=== PATIENT | female | born 1990 | race Caucasian/White ===

== ENCOUNTER 2020-09-11 14:01 | Outpatient (CLI) | payer BC ==
[2020-09-11] MEDS: LACTATED RINGERS 1,000 ML IV ONE ×2 (14:52→15:54)
[2020-09-11 15:04] LABS: Basophils # (A) 0.1 k/uL (0-0.2); Basophils % (A) 0 %; Eosinophils # (A) 0.2 k/uL (0-0.7); Eosinophils % (A) 2 %; HCT 34.7 % (34.0-46.0); HGB 11.7 gm/dL (11.4-16.0); Lymphocytes # (A) 1.2 k/uL (1.0-4.8); Lymphocytes % (A) 10 %; MCH 30.4 pg (25.0-35.0); MCHC 33.7 g/dL (31.0-37.0); MCV 90.4 fL (80.0-100.0); Mean Platelet Volume 8.5; Monocytes # (A) 0.4 k/uL (0-1.0); Monocytes % (A) 4 %; Neutrophils # (A) 10.5 k/uL (1.3-7.7); Neutrophils % (A) 84 %; Platelet Count 176 k/uL (150-450); RBC 3.84 m/uL (3.80-5.40); RDW 12.8 % (11.5-15.5); WBC 12.5 k/uL (3.8-10.6)
[2020-09-11 15:13] LABS: ALT 9 U/L (4-34); AST 28 U/L (14-36); African American GFR (CKD) >90 (>60 ml/min/1.73 sqM); Albumin 3.8 g/dL (3.5-5.0); Alkaline Phosphatase 75 U/L (38-126); Amylase 121 U/L (30-110); Anion Gap 5 mmol/L; Blood Urea Nitrogen 7 mg/dL (7-17); Calcium 9.4 mg/dL (8.4-10.2); Carbon Dioxide 22 mmol/L (22-30); Chloride 106 mmol/L (98-107); Glucose 80 mg/dL (74-99); Lipase 164 U/L (23-300); Non-African American GFR(CKD) >90 (>60 ml/min/1.73 sqM); Potassium 4.1 mmol/L (3.5-5.1); Sodium 133 mmol/L (137-145); Total Bilirubin 0.6 mg/dL (0.2-1.3); Total Protein 6.6 g/dL (6.3-8.2)
[2020-09-11 15:34] LABS: Appearance,Urine Clear (Clear); Bilirubin,Urine Negative (Negative); Blood,Urine Negative (Negative); Color,Urine Light Yellow; Glucose,Urine (UA) Negative (Negative); Ketones,Urine 2+ (Negative); Leukocyte Esterase,Urine Negative (Negative); Nitrite,Urine Negative (Negative); PH, Urine 6.5 (5.0-8.0); Protein,Urine Negative (Negative); Specific Gravity,Urine 1.009 (1.001-1.035); Urobilinogen,Urine <2.0 mg/dL (<2.0)
--- NOTE | 2020-09-11 15:40 | US ---
EXAMINATION TYPE: US gallbladder DATE OF EXAM: 09/11/2020 COMPARISON: NONE CLINICAL HISTORY: r/o gall stones kidney stones. Pain EXAM MEASUREMENTS: Liver Length: 17.2 cm Gallbladder Wall: .3 cm CBD: .6 cm Right Kidney: 11.6 x 4.1 x 4.5 cm Pancreas: Obscured by bowel gas Liver: wnl Gallbladder: wnl Evidence for sonographic Montalvo's sign: No CBD: wnl Right Kidney: No hydronephrosis or masses seen IMPRESSION: Negative exam. No gallstones or dilated ducts. No focal liver defect.
--- NOTE | 2020-09-11 15:42 | US ---
EXAMINATION TYPE: US kidneys/renal and bladder DATE OF EXAM: 09/11/2020 COMPARISON: NONE CLINICAL HISTORY: r/o kidney stone. Pain Patient 29 wks EXAM MEASUREMENTS: Right Kidney: 10.8 x 3.8 x 4.0 cm Left Kidney: 11.7 x 5.7 x 4.4 cm Right Kidney: No stones seen. Left Kidney: Mild to moderate hydronephrosis. Bladder: wnl Bilateral Jets seen: Yes IMPRESSION: Kidneys have normal size. There is left side hydronephrosis but ureteral jets are seen in the urinary bladder. I do not suspect obstruction.
[2020-09-11 15:44] LABS: Amphetamine Screen,Urine Not Detected (NotDetected); Barbiturate Screen,Urine Not Detected (NotDetected); Benzodiazepines Screen,Urine Not Detected (NotDetected); Cocaine Screen,Urine Not Detected (NotDetected); Methadone Screen, Urine Not Detected (NotDetected); Opiate Screen,Urine Not Detected (NotDetected); Oxycodone Screen, Urine Not Detected (NotDetected); Phencyclidine Screen,Urine Not Detected (NotDetected); Tricyclic Antidepressant,Urine Not Detected (NotDetected); Urn Cannabinoid Scrn Not Detected (NotDetected)
[2020-09-11 16:41] VITALS: BP 116/81; PULSE 87; RESP 18; TEMP 96.6
--- NOTE | 2020-09-13 06:20 | P.MSEPDOC ---
Presenting Problems - Arrival Data Date of Arrival on Unit: 09/11/20 Time of Arrival on Unit: 14:01 Mode of Transport: Portable - Complaint OB-Reason for Admission/Chief Complaint: Pain Comment: back and right side abdominal pain Medical History - Information : 2 Para: 1 Term: 1 : 0 Abortions: Spontaneous or Elective: 0 Number of Living Children: 1 - Gestational Age Gestational Age by GIANNA (wks/days): 29 Weeks and 5 Days - History Complications: Prior Comment: following with OB cytometry technologist in [place] Review of Systems - Review of Systems Constitutional: No problems Breast: No problems ENT: No problems Cardiovascular: No problems Respiratory: No problems Gastrointestinal: No problems Genitourinary: No problems Musculoskeletal: No problems Neurological: No problems Skin: No problems Vital Signs - Temperature Temperature: 96.6 F Temperature Source: Temporal Artery Scan - Pulse Right Sitting Brachial Pulse Rate: 87 Pulse Assessment Method: Automatic Cuff - Respirations Respiratory Rate: 18 Oxygen Delivery Method: Room Air O2 Sat by Pulse Oximetry: 100 - Blood Pressure Right Arm Sitting Blood Pressure: 116/81 Blood Pressure Mean: 92 Blood Pressure Source: Automatic Cuff Medical Screen Scoring (Pre) - Cervical Exam Dilation: 0 cm = 0 - Uterine Contractions Frequency: < 36 weeks = 6 Duration: > 40 seconds = 2 Intensity: N/A - Maternal Vital Signs Maternal Temperature: N/A Maternal Blood Pressure: N/A Signs of Preeclampsia: N/A Maternal Respirations: N/A - Maternal Trauma Maternal Trauma: N/A - Assessment - Baby A Baseline FHR: 120 Heart Rate - NICHD Category: Category I (Normal) = 0 NST: Reactive Position: N/A Station: N/A - Total Score - Baby A Total Score - Baby A: 8 - Total Score - Baby B Total Score - Baby B: 8 - Total Score - Baby C Total Score - Baby C: 8 - Level of Risk - Baby A Level of Risk - Baby A: Medium (6-9) - Level of Risk - Baby B Level of Risk - Baby B: Medium (6-9) - Level of Risk - Baby C Level of Risk - Baby C: Medium (6-9) Physician Notification (Pre) - Physician Notified Physician Notified Date: 09/11/20 Physician Notified Time: 16:30 New Order Received: Yes - Notification Comment Comment: DC home. Pt to make an appt with her own OB patti. labs reviewed. US neg. FFN neg. Cx closed. pain resolved prior to dc home. Disposition - Disposition OB Disposition: Discharge to home Discharge Date: 09/11/20 Discharge Time: 16:35 I agree with the RN Medical Screening Exam: Yes Case reviewed; plan agreed upon as documented in EMR&OBIX.: Yes Diagnosis: RELATED CONDITIONS, UNSPECIFIED, THIRD TRIMESTER
== END 2020-09-11 16:35 | disposition home or self-care (01) ==
LOC: FBPOP 14:01
PROVIDERS: ATTEND Obstetrics & Gynecology
DX: O26.93 Pregnancy related conditions, unspecified, third trimester (principal); Z3A.29 29 weeks gestation of pregnancy
CPT/HCPCS: 59025; 76705; 76770; 80053; 80306; 81003; 82150; 82247; 82731; 83690; 85025; 96361; 99214

== ENCOUNTER → 2022-07-31 | Outpatient (CLI) | payer BC ==
--- NOTE | 2022-07-31 07:35 | MM ---
Reason for Exam: Clinical finding. Baseline mammogram. Patient History: Menarche at age 12. First Full-Term at age 25. Maternal aunt had breast cancer. Last menstrual period: 07/26/2022 Prior Study Comparison: Patient's first Mammogram. No prior studies available for comparison. Tissue Density: The breast tissue is heterogeneously dense. This may lower the sensitivity of mammography. Findings: Analyzed By CAD. There is a oval 2.5 cm circumscribed mass at the level of palpable abnormality middle to posterior depth upper aspect. No suspicious group of microcalcification is seen bilaterally. Overall Assessment: Incomplete: need additional imaging evaluation, BI-RAD 0 Management: Diagnostic Breast Ultrasound of the left breast. Targeted ultrasound left breast at the area of mammogram and clinical concern. Electronically signed and approved by: Benito Diamond M.D.
--- NOTE | 2022-07-31 08:15 | USB ---
Reason for Exam: Clinical finding. Patient History: Menarche at age 12. First Full-Term at age 25. Maternal aunt had breast cancer. Technique: Method: Targeted. Findings: The upper section of the breast of the left breast, the area of palpable concern of the left breast, the axilla of the left breast and the retroareolar of the left breast were scanned. Targeted ultrasound left breast shows a 2.4 x 1.2 x 1.9 cm heterogeneous hypoechoic suspected solid mass without significant vascularity or posterior acoustic features is believed to be corresponding to palpable abnormality. Overall Assessment: Suspicious, BI-RAD 4 Management: Ultrasound Core Biopsy of the left breast. Probable fibroadenoma but sampling advised due to size and palpable to exclude other pathology. Results were given to the patient verbally at the time of exam. Electronically signed and approved by: Benito Diamond M.D.
== END | disposition home or self-care (01) ==
LOC: RADMAMWWP 06:58
PROVIDERS: ATTEND Family Medicine
DX: C50.212 Malignant neoplasm of upper-inner quadrant of left female breast (principal); Z80.3 Family history of malignant neoplasm of breast
CPT/HCPCS: 77062; 77066

== ENCOUNTER → 2022-08-16 | Day surgery (SDC) | payer BC ==
--- NOTE | 2022-08-24 14:39 | MM ---
Reason for Exam: Post Procedure Mammogram. Last screening mammogram was performed less than 1 month ago. Patient History: Menarche at age 12. First Full-Term at age 25. Maternal aunt had breast cancer. Prior Study Comparison: 07/31/2022 Bilateral MG 3D diag mammo w/cad [facility], [facility]. Tissue Density: Left: The breast tissue is heterogeneously dense. This may lower the sensitivity of mammography. Pathology Description: Location: 12 o'clock. Marker Left Behind. Needle Type: Celero Cores: 2 Gauge: 12 The procedure of ultrasound guided core biopsy was explained to the patient. Benefits, alternatives, and risks were discussed. An informed consent was then obtained. The patient was placed in supine positioning for imaging and for the procedure. Preprocedure ultrasound redemonstrates a lobulated heterogeneous hypoechoic solid 2.3 cm mass at 12:00 position left breast. The overlying skin was prepped and draped in usual sterile fashion. Lidocaine is used as anesthetic into the skin and subcutaneous tissue up to area of concern in the left breast. Under ultrasound guidance, a vacuum assisted biopsy gun device was used to obtain 2 core samples. Following this, a biopsy clip was left in lesion. The patient tolerated the procedure well without any immediate complication. The patient was kept in the radiology department for short stay after the procedure and then discharged home in stable condition. Postprocedure mammogram: The patient was transferred to mammography for physician ordered post procedure mammogram for clip placement verification. Successful deployment of clip within mass on ultrasound and postprocedure mammogram. Impression: Successful, uncomplicated ultrasound guided core biopsy of area of concern in the left breast, full pathology results to follow. Low index of suspicion. Fibroadenoma is suspected. Pathology Results: Result: Benign, Fibroadenoma. LEFT BREAST, ULTRASOUND GUIDED NEEDLE CORE BIOPSY: Fibroadenoma. Overall Assessment: Benign Assessment: MG diagnostic mammo LT wo CAD. - Left: Benign, BI-RAD 2. Management: Diagnostic Breast Ultrasound of the left breast in 6 months. Electronically signed and approved by: Benito Diamond M.D.
== END ==
LOC: RADUSWWP 12:46
PROVIDERS: ATTEND Surgery
DX: D24.2 Benign neoplasm of left breast (principal)
CPT/HCPCS: 88305; 77065; 19083; A4648

== ENCOUNTER → 2023-08-17 | Outpatient (CLI) | payer BC ==
--- NOTE | 2023-08-17 14:18 | USB ---
Reason for Exam: Follow-up at short interval from prior study. Patient History: Menarche at age 12. First Full-Term at age 25. 08/16/2022, Benign US biopsy breast VAD LT on the left side. Maternal aunt had breast cancer. Last menstrual period: 07/22/2023 Risk Values: Lyn 5 year model risk: 0.5%. NCI Lifetime model risk: 12.7%. Technique: Method: Targeted. Doppler: Color. Patient Position: Supine. Prior Study Comparison: 07/31/2022 Bilateral MG 3D diag mammo w/cad [facility], [facility]. 07/31/2022 Left US breast limited LT, [facility]. 08/16/2022 Left MG diagnostic mammo LT wo CAD., [facility]. Findings: The area of palpable concern of the left breast, the axilla of the left breast and the retroareolar of the left breast were scanned. There is a 2.2 x 1.2 x 2.0 cm hypoechoic well-circumscribed mass. This is stable from comparison. Overall Assessment: Benign, BI-RAD 2 Management: Screening Mammogram of both breasts in 1 year. A clinical breast exam by your physician is recommended on an annual basis and results should be correlated with mammographic findings. This exam should not preclude additional follow-up of suspicious palpable abnormalities. Results were given to the patient verbally at the time of exam. Electronically signed and approved by: Rickey Gambino D.O. Radiologis
== END | disposition home or self-care (01) ==
LOC: RADUSWWP 07:01
PROVIDERS: ATTEND Surgery
DX: R92.8 Other abnormal and inconclusive findings on diagnostic imaging of breast (principal); Z80.3 Family history of malignant neoplasm of breast

== ENCOUNTER → 2023-08-24 | Outpatient (CLI) | payer BC ==
--- NOTE | 2023-08-25 14:28 | CA ---
Transthoracic Echo Report Name: Charlene Canales Age: 33 Gender: F : 1990 Exam Date: 08/24/2023 16:05 Exam Location: [facility] Ht (in): 61 Wt (lb): 152 Ordering Physician: Erin Duarte DO Attending/Referring Phys: Radha Orr [facility] Ambulatory Analyst Samantha Centeno RDCS Procedure CPT: Indications: R00.2 PALIPTATIONS Cardiac Hx: Technical Quality: Fair Contrast 1: Total Dose (mL): Contrast 2: Total Dose (mL): MEASUREMENTS (Male / Female) Normal Values 2D ECHO LV Diastolic Diameter PLAX 3.9 cm 4.2 - 5.9 / 3.9 - 5.3 cm LV Systolic Diameter PLAX 2.6 cm IVS Diastolic Thickness 0.8 cm 0.6 - 1.0 / 0.6 - 0.9 cm LVPW Diastolic Thickness 0.9 cm 0.6 - 1.0 / 0.6 - 0.9 cm LV Relative Wall Thickness 0.4 RV Internal Dim ED PLAX 2.9 cm LA Volume 31.8 cm??? 18 - 58 / 22 - 52 cm??? LA Volume Index 18.2 cm???/m??? 16 - 28 cm???/m??? M-MODE Aortic Root Diameter MM 2.7 cm LA Systolic Diameter MM 2.5 cm LA Ao Ratio MM 0.9 AV Cusp Separation MM 1.8 cm DOPPLER AV Peak Velocity 134.2 cm/s AV Peak Gradient 7.2 mmHg AV Mean Velocity 97.3 cm/s AV Mean Gradient 4.0 mmHg AV Velocity Time Integral 26.3 cm LVOT Peak Velocity 95.1 cm/s LVOT Peak Gradient 3.6 mmHg LVOT Velocity Time Integral 18.3 cm MV Area PHT 3.1 cm??? Mitral E Point Velocity 58.6 cm/s Mitral A Point Velocity 60.7 cm/s Mitral E to A Ratio 1.0 MV Deceleration Time 242.6 ms MV E' Velocity 10.3 cm/s Mitral E to MV E' Ratio 5.7 TR Peak Velocity 206.4 cm/s TR Peak Gradient 17.0 mmHg Right Ventricular Systolic Press 21.8 mmHg FINDINGS Left Ventricle Normal Left ventricular size, wall thickness, systolic function with no obvious regional wall motion abnormalities. Normal Left ventricular diastolic filling pattern. Left ventricular ejection fraction is estimated at 55-60 %. Right Ventricle Normal right ventricular size and function. Right ventricular systolic pressure within normal limits. Right Atrium Normal right atrial size. Left Atrium Normal left atrial size. Mitral Valve Structurally normal mitral valve. No mitral stenosis. Trace to mild mitral regurgitation. Aortic Valve Trileaflet aortic valve. No aortic valve stenosis or regurgitation. Tricuspid Valve Structurally normal tricuspid valve. Mild tricuspid regurgitation. Pulmonic Valve Structurally normal pulmonic valve. Trace pulmonic regurgitation. Pericardium No pericardial effusion. Aorta Normal size aortic root and proximal ascending aorta. CONCLUSIONS Preserved LV size and systolic function Previewed by: Dr. Addy Spencer MD (Electronically Signed) Final Date: 25 August 2023 14:27
== END | disposition home or self-care (01) ==
LOC: RADECHMAIN 15:56
PROVIDERS: ATTEND Family Medicine
DX: R00.2 Palpitations (principal)
CPT/HCPCS: 93306